=== PATIENT | female | born 1960 | race Two or more races ===

== ENCOUNTER 2024-07-19 08:01 | Outpatient (CLI) | payer OTHER | END 2024-07-19 08:02 | disposition home or self-care (01) | LOC: NUCLEAR 08:01 | DX: M85.80 Other specified disorders of bone density and structure, unspecified site (principal); M81.0 Age-related osteoporosis without current pathological fracture ==

== ENCOUNTER → 2024-10-07 | Outpatient (CLI) | payer OTHER | END | disposition home or self-care (01) | LOC: SONOGRAMA 11:05 | DX: M75.01 Adhesive capsulitis of right shoulder (principal) ==